=== PATIENT | male | born 1995 | race Hispanic/Latino ===

== ENCOUNTER 2018-11-09 23:23 | Inpatient (IN) | payer OTHER ==
[~2018-11-09] VITALS: Ht 170.2 cm; Wt 81.7 kg
[2018-11-09 23:57] LABS: BASO % 0.2 % (0.0-1.0); HEMATOCRIT 42.6 % (42.0-52.0); HEMOGLOBIN 14.5 g/dl (13.5-17.5); LYMPH # 0.5 10^3/uL (1.5-6.5); LYMPH % 4.4 % (24.0-44.0); MEAN CORPUSCULAR HEMOGLOBIN 30.9 pg (27.0-33.0); MEAN CORPUSCULAR VOLUME 90.6 fl (80.0-96.0); MONO # 0.3 10^3/uL (0.0-0.8); MONO % 2.2 % (0.0-5.0); NEUTROPHILS # 10.7 10^3/uL (1.8-7.7); NEUTROPHILS % 92.8 % (36.0-66.0); PLATELET COUNT, AUTOMATED 231 10^3/uL (150-450); WHITE BLOOD COUNT 11.5 10^3/uL (4.0-10.0)
[2018-11-10] MEDS ORDERED: NS 1,000 ML IV SCH (00:30)
[2018-11-10 00:32] LABS: ACETAMINOPHEN LEVEL 28.8 UG/ML (10.0-30.0); ALBUMIN 4.5 GM/DL (3.2-5.2); ALT/SGPT 21 U/L (12-78); BILIRUBIN,DIRECT 0.1 MG/DL (0.0-0.2); BILIRUBIN,TOTAL 0.4 MG/DL (0.2-1.0); BLOOD UREA NITROGEN 12 MG/DL (7-18); CALCIUM LEVEL 8.7 MG/DL (8.5-10.1); CARBON DIOXIDE LEVEL 19 MEQ/L (21-32); CHLORIDE LEVEL 101 MEQ/L (98-107); CK-MB VALUE MASS < 1.0 NG/ML (<3.6); CPK CREATINE PHOSPHOKINASE 169 U/L (39-308); CREATININE FOR GFR 1.31 MG/DL (0.70-1.30); ETHYL ALCOHOL (ETHANOL) < 0.003 % (0.000-0.010); GLOMERULAR FILTRATION RATE > 60.0 (>60); GLUCOSE, FASTING 272 MG/DL (70-100); MB/CK RELATIVE INDEX 0.59 (< OR =4); POTASSIUM SERUM 3.6 MEQ/L (3.5-5.1); SALICYLATE LEVEL < 1.7 MG/DL (5.0-30.0); SODIUM LEVEL 135 MEQ/L (136-145); TOTAL PROTEIN 7.8 GM/DL (6.4-8.2); TROPONIN I < 0.02 NG/ML (< 0.10)
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
[2018-11-10 02:01] LABS: AMPHETAMINES LEVEL URINE NEGATIVE (NEGATIVE); BARBITURATES URINE NEGATIVE (NEGATIVE); BENZODIAZEPINES URINE NEGATIVE (NEGATIVE); CANNABINOIDS URINE NEGATIVE (NEGATIVE); COCAINE METABOLITE URINE NEGATIVE (NEGATIVE); METHADONE URINE NEGATIVE (NEGATIVE); OPIATES URINE NEGATIVE (NEGATIVE); PHENCYCLIDINE URINE NEGATIVE (NEGATIVE)
[2018-11-10 04:47] LABS: BILIRUBIN,DIRECT 0.1 MG/DL (0.0-0.2); BILIRUBIN,TOTAL 0.3 MG/DL (0.2-1.0)
--- NOTE | 2018-11-10 12:30 | REP ---
AP PORTABLE CHEST: 11/10/2018. CLINICAL HISTORY: Altered mental state. FINDINGS: There are no prior studies. Lung ng are adequately inflated. There is no effusion, lateral pleural thickening, apical scarring, or pneumothorax. The heart, mediastinal and hilar contours are normal. Aorta and airway are intact. The bony thorax shows no focal lesion. IMPRESSION: 1. No acute cardiopulmonary change. Electronically Signed by Rashid Mckeon MD 11/10/2018 06:56 P
[2018-11-10] MEDS ORDERED: MAALOX 30 ML SUSP *UDC PO PRN (14:00)
[2018-11-10] MEDS ORDERED: ACETAMINOPHEN TAB 650MG DOSE (2X325MG) PO PRN (14:00)
[2018-11-10] MEDS ORDERED: traZODone 50 MG TAB PO PRN (14:00)
[2018-11-10] MEDS ORDERED: MOM 30ML SUSPENSION UDC PO PRN (14:00)
[2018-11-10 15:31] VITALS: BP 141/88
--- NOTE | 2018-11-10 16:39 | ECGEPIP ---
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
[2018-11-11 07:10] VITALS: BP 101/52
[2018-11-11 08:11] LABS: BASO # 0.1 10^3/uL (0.0-0.2); BASO % 0.9 % (0.0-1.0); EOS # 0.2 10^3/uL (0.0-0.50); EOS % 3.6 % (0.0-3.0); HEMATOCRIT 46.5 % (42.0-52.0); HEMOGLOBIN 15.5 g/dl (13.5-17.5); LYMPH # 2.5 10^3/uL (1.5-6.5); LYMPH % 38.6 % (24.0-44.0); MEAN CORPUSCULAR HEMOGLOBIN 30.8 pg (27.0-33.0); MEAN CORPUSCULAR HGB CONC 33.3 g/dl (32.0-36.5); MEAN CORPUSCULAR VOLUME 92.3 fl (80.0-96.0); MONO # 0.5 10^3/uL (0.0-0.8); MONO % 8.4 % (0.0-5.0); NEUTROPHILS # 3.1 10^3/uL (1.8-7.7); NEUTROPHILS % 48.2 % (36.0-66.0); PLATELET COUNT, AUTOMATED 241 10^3/uL (150-450); RED BLOOD COUNT 5.04 10^6/uL (4.30-6.10); WHITE BLOOD COUNT 6.4 10^3/uL (4.0-10.0)
[2018-11-11 08:35] LABS: ALBUMIN 4.5 GM/DL (3.2-5.2); ALT/SGPT 21 U/L (12-78); BILIRUBIN,TOTAL 0.7 MG/DL (0.2-1.0); BLOOD UREA NITROGEN 10 MG/DL (7-18); CALCIUM LEVEL 9.5 MG/DL (8.5-10.1); CARBON DIOXIDE LEVEL 29 MEQ/L (21-32); CHLORIDE LEVEL 107 MEQ/L (98-107); FREE THYROXINE INDEX 2.8 % (1.4-3.8); GLOMERULAR FILTRATION RATE > 60.0 (>60); GLUCOSE, FASTING 93 MG/DL (70-100); POTASSIUM SERUM 4.4 MEQ/L (3.5-5.1); SODIUM LEVEL 140 MEQ/L (136-145); T UPTAKE 34 % (33-40); THYROXINE (T4) 8.1 UG/DL (4.5-12.0); TOTAL PROTEIN 7.8 GM/DL (6.4-8.2)
[2018-11-11] MEDS ORDERED: hydrOXYzine 25 MG TAB PO PRN (16:15)
--- NOTE | 2018-11-11 16:28 | ECGEPIP ---
Stationary ECG Study [facility] Test Date: 2018-11-11 Pat Name: BRENDON KING Department: Room: [place] [address] Gender: M [place]: : 1995 Requested By: Laura Madden [facility] Order Number: [id number] Reading MD: Brendon Rangel Measurements Intervals [place] Rate: 55 P: 38 [place]: 141 QRS: 46 QRSD: 110 T: 23 QT: 379 QTc: 363 Interpretive Statements SINUS BRADYCARDIA LVH by Figueroa criteria Electronically Signed On 11-11-2018 16:28:22 EST by Brendon Rangel
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
[2018-11-11 18:00] VITALS: BP 111/61
[2018-11-12 06:40] VITALS: BP 102/64
--- NOTE | 2018-11-12 11:32 | HPE ---
DATE OF ADMISSION: 11/10/2018 HISTORY OF THE PRESENT ILLNESS: Please refer to psychiatric history and evaluation for further details on this admission. This examination and history is intended for medical issues history, which may need treatment, follow-up or consult on this 23-year-old male. ALLERGIES: No known drug allergies. PRIMARY CARE PROVIDER: [facility]. 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 Smokes none. Recreational drug use none. PAST MEDICAL HISTORY: Negative. PAST SURGICAL HISTORY: Negative. HOME MEDICATIONS: None. LABORATORY STUDIES: White count was slightly elevated at 11.5, hemoglobin 14.5, hematocrit 42.6, platelets 231. Sodium 135, potassium 3.6, chloride 101, CO2 19, BUN was 12, creatinine was 1.31, nonfasting glucose 232. CK, CK-MB and troponin were normal. TSH was 4.030. Total protein was low at 5. Albumin was low at 3.0. Toxicology was negative. EKG showed sinus tachycardia at 125. The patient had fallen. CT of the spine was negative. Chest x-ray was negative. CT of the head showed no acute intracranial hemorrhage, negative CT. FAMILY HISTORY: Noncontributory. REVIEW OF SYSTEMS: Was essentially negative. PHYSICAL EXAMINATION: 23-year-old cooperative male in no acute distress. Height 67 inches, weight 84.2 kg, BMI 21.1, blood pressure 107/50, pulse 100, respirations 18, temperature 98.8. Patient is alert and oriented times three. Pupils equal and react to light. Extraocular muscles intact. Cornea and sclerae are clear. Conjunctivae are normal. No facial asymmetry. Pharynx, tongue and gums are pink and moist. Tongue is midline. Neck is supple without lymphadenopathy. No thyromegaly. No goiter. Carotids are 2+ without bruit. Chest clear to auscultation without wheeze or retraction. Heart is regular. Abdomen is benign. Bowel sounds are positive. /rectal not done. Extremities show equal strength. Full range of motion. No cyanosis, clubbing or edema. Cranial nerves III through XII grossly intact. IMPRESSION/PLAN: 1. Leukocytosis. Repeat in a.m. Probably secondary to stress. Asymptomatic. 2. EKG sinus tachycardia. Will recheck in a.m. with patient less anxious. Sodium 135, potassium 3.6, chloride 101, CO2 19, BUN 12, creatinine up slightly at 131, nonfasting glucose 273, total protein low at 5.0, albumin is low at 3.0. TSH is abnormal at 4.03. IMPRESSION/PLAN: 1. Psychiatric plan per psychiatry. 2. Sinus tach, repeat EKG in a.m. 3. Low protein, albumin, TSH. Repeat in a.m.
[2018-11-12 18:00] VITALS: BP 139/76
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
[2018-11-13 06:00] VITALS: BP 108/58
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
[2018-11-13 18:00] VITALS: BP 132/82
[2018-11-14 06:37] VITALS: BP 116/59
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
[2018-11-14 18:00] VITALS: BP 128/77
[2018-11-15 06:46] VITALS: BP 114/57
[2018-11-15 18:00] VITALS: BP 130/75
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
[2018-11-16 06:37] VITALS: BP 99/53
[2018-11-16 18:10] VITALS: BP 138/67
[2018-11-17 06:08] VITALS: BP 142/65
[2018-11-17 18:00] VITALS: BP 118/58
[2018-11-18 06:47] VITALS: BP 122/70
[2018-11-18] MEDS ORDERED: HYDR-3363 PO (12:54)
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
== END 2018-11-18 14:00 | disposition home or self-care (01) | DRG 882 ==
LOC: M ED 23:23 → M ED INP 11-10 13:53 → M PSY 11-10 15:10
PROVIDERS: ADMIT Psychiatry & Neurology Psychiatry; ATTEND Psychiatry & Neurology Psychiatry
DX: F43.23 Adjustment disorder with mixed anxiety and depressed mood (principal)